=== PATIENT | male | born 1950 ===

== ENCOUNTER → 2018-02-25 | Outpatient (CLI) | payer OTHER | END | disposition home or self-care (01) | LOC: TOM 07:45 | DX: C61 Malignant neoplasm of prostate (principal) ==

== ENCOUNTER 2018-02-27 10:30 | Outpatient (CLI) | payer OTHER | END 2018-02-27 12:00 | disposition home or self-care (01) | LOC: NUCLEAR 10:30 | DX: C61 Malignant neoplasm of prostate (principal) | CPT/HCPCS: 78320; 78306; A9503 ==

== ENCOUNTER 2019-08-12 09:21 | Outpatient (CLI) | payer OTHER | END 2019-08-12 11:19 | disposition home or self-care (01) | LOC: NUCLEAR 09:21 | DX: C61 Malignant neoplasm of prostate (principal) | CPT/HCPCS: 78306; 78320; A9503 ==

== ENCOUNTER → 2019-09-23 09:47 | Outpatient (CLI) | payer OTHER | END | disposition home or self-care (01) | LOC: LAB 09:47 | DX: N20.0 Calculus of kidney (principal) ==

== ENCOUNTER → 2019-09-23 | Outpatient (CLI) | payer OTHER | END | disposition home or self-care (01) | LOC: TOM 08:45 | DX: C61 Malignant neoplasm of prostate (principal) | CPT/HCPCS: 74178; Q9965 ==